=== PATIENT | male | born 1990 | race Hispanic/Latino ===

== ENCOUNTER 2022-09-20 12:25 | Emergency (ER) | payer OTHER ==
[~2022-09-20] VITALS: Ht 167.6 cm; Wt 68.0 kg
[2022-09-20 12:40] VITALS: BP 110/67
[2022-09-20] MEDS ORDERED: IBUPROFEN 600 MG TABLET ONE (12:59)
[2022-09-20] MEDS ORDERED: IBUPROFEN 600 MG TABLET PO ONE (13:00)
[2022-09-20] MEDS ORDERED: IBUP-2070 PO (13:10)
== END 2022-09-20 13:24 | disposition home or self-care (01) ==
LOC: EDH 12:25
DX: G89.29 Other chronic pain (principal); M25.511 Pain in right shoulder
CPT/HCPCS: 99282

== ENCOUNTER 2025-02-25 15:54 | Emergency (ER) | payer SELFPAY ==
[~2025-02-25] VITALS: Ht 160 cm; Wt 61.2 kg
[~2025-02-25 15:54] MED LIST: IBUP-1492 PO
[2025-02-25 16:01] VITALS: BP 120/73; PULSE 16; RESP 16; TEMP 97.8; O2SAT 75
[2025-02-25] MEDS ORDERED: NAPR-1194 PO (16:59)
[2025-02-25] MEDS ORDERED: METH-662 PO (16:59)
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
[2025-02-25] MEDS: ORPHENADRINE 60MG/2ML IM SCH (18:06)
== END 2025-02-25 18:07 | disposition home or self-care (01) ==
LOC: EDH 15:54
DX: G44.209 Tension-type headache, unspecified, not intractable (principal); M62.838 Other muscle spasm; Z79.899 Other long term (current) drug therapy
CPT/HCPCS: 99284; 96372 ×2; J1885; J2360